=== PATIENT | male | born 1975 | race Caucasian/White ===

== ENCOUNTER 2018-01-28 16:49 | Emergency (ER) | payer MEDICAID ==
[2018-01-28] MEDS: IBUPROFEN 600 MG TAB PO (18:37)
[2018-01-28] MEDS: DIAZEPAM 5 MG TAB PO (18:37)
== END 2018-01-28 19:54 | disposition home or self-care (01) ==
LOC: FTE 16:49
DX: S13.4XXA Sprain of ligaments of cervical spine, initial encounter (principal); S33.5XXA Sprain of ligaments of lumbar spine, initial encounter; I10 Essential (primary) hypertension; V49.40XA Driver injured in collision with unspecified motor vehicles in traffic accident, initial encounter
CPT/HCPCS: 72040; 72100; 99283-25